=== PATIENT | female | born 1950 | race Caucasian/White ===

== ENCOUNTER → 2016-09-23 | Outpatient (CLI) | payer MEDICARE | LOC: RAD 13:49 | DX: R06.02 Shortness of breath (principal) | CPT/HCPCS: 71020 ==

== ENCOUNTER 2021-04-21 19:18 | Emergency (ER) | payer SELFPAY ==
[~2021-04-21 19:18] MED LIST: HYGROTON TAB 2525 MG PO; LODINE CAP 300300 MG PO; LOPRESSOR50 MG PO; NITROSTAT0.4 MG SL; NORCO 5-325 TA1 EACH PO; OMNICEF 300 MG300 MG PO; POTASSIUM GLU2.5 MEQ PO; PRAVACHOL40 MG PO; ROBAXIN-750750 MG PO; ZANTAC150 MG PO; ZOLOFT50 MG PO
== END 2021-04-21 22:00 | disposition home or self-care (01) ==
LOC: ER1 19:18
DX: S63.501A Unspecified sprain of right wrist, initial encounter (principal); W19.XXXA Unspecified fall, initial encounter
CPT/HCPCS: 29125; 72100; 73110; 73562; 99283

== ENCOUNTER 2021-11-27 22:26 | Observation (INO) | payer MEDICARE ==
[~2021-11-27] VITALS: Ht 165.1 cm; Wt 101.6 kg
[~2021-11-27 22:26] MED LIST changes: +CRESTOR20 MG PO; +LOPRESSOR 25 MG25 MG PO; -LOPRESSOR50 MG PO; -PRAVACHOL40 MG PO
[2021-11-27 22:56] LABS: HEMOGLOBIN 13.4 gm/dl (12.3-15.3); RED BLOOD COUNT 4.98 M/UL (4.00-5.10); WHITE BLOOD COUNT 7.4 K/UL (4.5-11.0)
[2021-11-28 04:46] LABS: HEMOGLOBIN 13.3 gm/dl (12.3-15.3); RED BLOOD COUNT 5.02 M/UL (4.00-5.10); WHITE BLOOD COUNT 6.7 K/UL (4.5-11.0)
[2021-11-28] MEDS ORDERED: ASPIRIN CHEWABL81 MG PO (09:54)
[2021-11-28] MEDS ORDERED: HYDROCHLOROTHIA25 MG PO (10:13)
[2021-11-28] MEDS ORDERED: PROAIR HFA8.5 GM INH (10:14)
== END 2021-11-28 09:18 | disposition left against medical advice (07) ==
LOC: ER1 22:26 → CDU 11-28 02:49
PROVIDERS: Student in an Organized Health Care Education/Training Program; ADMIT Internal Medicine
DX: R07.89 Other chest pain (principal); E11.9 Type 2 diabetes mellitus without complications; I10 Essential (primary) hypertension; E78.5 Hyperlipidemia, unspecified; I34.1 Nonrheumatic mitral (valve) prolapse; Z53.29 Procedure and treatment not carried out because of patient's decision for other reasons; Z95.5 Presence of coronary angioplasty implant and graft; Z87.891 Personal history of nicotine dependence; Z88.2 Allergy status to sulfonamides; Z88.5 Allergy status to narcotic agent; Z79.82 Long term (current) use of aspirin
CPT/HCPCS: 71045; 80053; 80061; 82550; 82553; 83036; 83735; 84439; 84443; 84484; 85025; 93005; 99283; G0378